=== PATIENT | male | born 1970 | race African-American/Black ===

== ENCOUNTER 2021-11-12 07:48 | Day surgery (SDC) | payer MEDICAID ==
[~2021-11-12] VITALS: Ht 165.1 cm; Wt 72.6 kg
[~2021-11-12 07:48] MED LIST: HYDROCHLOROTHIA50 MG PO
[2021-11-12] MEDS ORDERED: PERCOCET 5/321 COMBO PO (10:49)
[2021-11-12 11:56] VITALS: BP 155/96
== END 2021-11-12 12:10 | disposition home or self-care (01) ==
LOC: ORM 07:48
PROVIDERS: ATTEND Surgery
DX: K40.90 Unilateral inguinal hernia, without obstruction or gangrene, not specified as recurrent (principal); I10 Essential (primary) hypertension
CPT/HCPCS: J0131